=== PATIENT | female | born 1980 | race Caucasian/White ===

== ENCOUNTER → 2018-01-06 | Outpatient (CLI) | payer OTHER ==
[~2018-01-06] VITALS: Ht 163.8 cm; Wt 114.8 kg
[~2018-01-06] MED LIST: ZOLOFT 50MG50 MG PO; ZYRTEC 10MG10 MG PO
[2018-01-06 10:14] VITALS: BP 120/70; PULSE 80
== END ==
LOC: LIGHT
DX: E16.1 Other hypoglycemia (principal); F32.9 Major depressive disorder, single episode, unspecified; E66.01 Morbid (severe) obesity due to excess calories; Z68.41 Body mass index [BMI] 40.0-44.9, adult; Z71.3 Dietary counseling and surveillance
CPT/HCPCS: G0463

== ENCOUNTER → 2018-02-05 | Outpatient (CLI) | payer OTHER ==
[~2018-02-05] VITALS: Ht 163.8 cm; Wt 115.2 kg
[~2018-02-05] MED LIST changes: +VITAMIND3 5000 PO
[2018-02-05 10:25] VITALS: BP 120/60; PULSE 92
== END ==
LOC: LIGHT 10:20
DX: E16.9 Disorder of pancreatic internal secretion, unspecified (principal); F32.9 Major depressive disorder, single episode, unspecified; E66.01 Morbid (severe) obesity due to excess calories; Z68.42 Body mass index [BMI] 45.0-49.9, adult; Z71.3 Dietary counseling and surveillance
CPT/HCPCS: G0463

== ENCOUNTER → 2018-02-23 | Outpatient (CLI) | payer OTHER | LOC: LIGHT 10:19 | DX: E16.9 Disorder of pancreatic internal secretion, unspecified (principal); F32.9 Major depressive disorder, single episode, unspecified; E66.01 Morbid (severe) obesity due to excess calories; Z68.41 Body mass index [BMI] 40.0-44.9, adult; Z71.3 Dietary counseling and surveillance ==

== ENCOUNTER → 2018-02-24 | Outpatient (CLI) | payer OTHER | LOC: LIGHT 12:59 | DX: E16.9 Disorder of pancreatic internal secretion, unspecified (principal); F32.9 Major depressive disorder, single episode, unspecified; E66.9 Obesity, unspecified; Z68.41 Body mass index [BMI] 40.0-44.9, adult; Z71.3 Dietary counseling and surveillance ==